=== PATIENT | female | born 1950 | race Hispanic/Latino ===

== ENCOUNTER 2024-04-03 08:48 | Inpatient (IN) | payer OTHER ==
[2024-04-03] MEDS ORDERED: DOCUSATE NA/SENNA CONC 1 TAB PO PRN (13:23)
[2024-04-03] MEDS: INSULIN REGULAR (HUMAN) 100 UNIT/ML SQ SCH (16:09)
[2024-04-03] MEDS: SODIUM CHLORIDE 1 GM TAB PO SCH (16:29)
[2024-04-03] MEDS ORDERED: INSULIN GLARGINE 100 UNIT/ML SQ SCH (16:30)
[2024-04-03] MEDS: ATORVASTATIN 10 MG TAB PO SCH (20:06)
[2024-04-03] MEDS: MELATONIN 3 MG TABLET PO PRN (20:06)
--- NOTE | 2024-04-04 00:47 | HP ---
Date of Admission: 04/03/2024 Chief Complaint: "I fell and hit my head." History Of Present Illness: Ms. Crespo is a 73-year-old right-handed patient with hypertens ion and diabetes mellitus, who was at home walking in her garage in the dark when she tripped and fel l. She landed on her hands, knees, and hit the left head. She did not recall the exact event detail s and likely lost consciousness, but is unsure. She was initially seen, treated with conservative ma nagement, and hospitalized from 02/21/2024 to 02/23/2024. She apparently had another fall somewhere subsequently. However, she became more confused and had a CT scan of her head, which showed a massiv e subacute to chronic subdural hematoma, measuring 1.5 cm, midline shift. She was treated with Keppr a and was taken to emergent surgery with a right craniotomy and evacuation on March 11, 2024. She did have some worsening noted. It was measured again at 1.5 mm with midline shift and compression. Afte r decompression, she had a subdural drain placed and it was removed after CT scan was stable on 03/20 . She did have electrolyte abnormalities with hypomagnesemia and hypokalemia, which were replaced. She had postoperative anemia and it was monitored. She was eventually medically cleared to begin darinel murray for therapy. With therapy, she was found to require maximum assistance for bed mobilization and transfers, and to be able to turn over in bed, and to begin to mobilize. She was initially trans ferred to half-way, but was only able to complete 1 physical and occupational therapy session. She was not doing well and failed to thrive. She did begin to ambulate with a rolling walker, but was "very weak and shaky." She also had significant leaning to the left side when sitting and diffic ulty maintaining balance when standing. She was therefore found to be ambulating much below her norm al level of mobilization and transfers prior to her fall, and would therefore benefit from very aggre ssive therapy to help her return to her prior level of functioning and minimize the risk of rehospita lization. Past Medical History: As noted. Surgical History: Craniotomy, where there was actually 1 staple remaining and that will be removed t jose. Allergies: NO KNOWN DRUG ALLERGIES. X-ray/imaging: On 03/20/2024, CT scan of the head showed the postoperative changes of the right conv exity subdural hematoma. The residual hematoma was 1.2 cm, down from 1.5 cm. Midline shift down to 8 mm. There was no uncal herniation. No contralateral left-sided hydrocephalus. Current Medications: Tylenol 500 mg every 6 hours as needed, Lipitor 10 mg at bedtime, vitamin B12 1 000 mcg daily. She has a mild insulin sliding scale, Synthroid 0.088 mg daily, Prinivil 10 mg daily, melatonin 3 mg at bedtime, Glucophage 500 mg at breakfast, Senokot-S 2 at bedtime, and she receives 2 g of sodium chloride 3 times daily. Family History: Noncontributory. Review of Systems: She does report mild pain in the head at the surgical site, some tingling, and pins and needles sensa tions. Otherwise, she denies any headaches, loss of vision, blurred vision. No fevers, chills. No sick with nausea, vomiting. No generalized myalgia, arthralgia, rash. No psychiatric complaints. Laboratory Studies: Her glucose ranged from 155 to 171. White blood cell count 4.46, hemoglobin 7.1 , hematocrit 22.1, platelets 114. Sodium 134; potassium 3.2; glucose here was 112, which was earlier ; BUN 5; creatinine 0.34. Calcium 6.6, magnesium 1.4. Current Level Of Functioning: Supervision for eating. Moderate assistance for oral hygiene. Depend ent for toileting. Maximum assistance for showering and lower body dressing. Donning and doffing fo otwear, dependent. Rolling from left to right, sitting to lying, all maximum assistance. For transf erring to the side of bed and to the chair and wheelchair and walker, dependent. Physical Examination: Vital Signs: Blood pressure 137/63, pulse 81, respiratory rate 16, temperature 97.2, oxygen saturati on 99%. Weight 150 pounds, height 5 feet 5 inches, BMI 25. General: Ms. Crespo is resting in bed. Her is at bedside. HEENT: She has a long healing scar in the right top of her head with doreen in place. Good hemosta sis is noted there. She is otherwise atraumatic. Sclerae anicteric. Oropharynx moist. Neck: Supple. Chest: Clear. Heart: Regular. Extremities: Show no significant clubbing, cyanosis, or edema. Neurological: She has some mild diffuse weakness of lower extremities. No loss of sensation, left t o right side. Good coordination. Intact upper and lower extremities. Rehabilitation And Medical Assessment And Plan: Ms. Crespo is a 73-year-old patient in inpatient [facility] abilitation unit with impairment category 02, brain dysfunction, traumatic. Impairment group code is 02.22 traumatic, closed injury. Etiologic diagnosis: Right parafalcine subdural hematoma. Comorbi dities are anemia, decreased physical functioning, decreased mobility, hypertension, hypokalemia, hyp omagnesemia with some mild left-sided weakness that is improving. She has a right parafalcine subdur al hematoma, status post craniotomy with resection. Plan: 1.She will have physical, occupational, and speech therapy for 3.5 hours, 5 of 7 days. 2.She will use sequential compression devices for DVT prophylaxis given subdural hematoma. 3.Diabetes mellitus, managed with metformin 500 mg with breakfast on a sliding scale as mild. Low b lood sodium with sodium tablets being replaced. Constipation, with Senokot-S. Melatonin for insomni a. Prinivil for hypertension. Synthroid 0.088 mg for hypothyroidism. Lipitor 10 mg daily for dysli pidemia. Tylenol 500 mg for pain every 4 hours as needed. Comorbidities That Are Impacting Rehabilitation: Given her subdural hematoma, which is traumatic, chichi de la fuente is at risk of bleeding, so DVT prophylaxis will be with SCDs. Otherwise, she has Dr. Deb quinonez her comorbid conditions. Rehab Specific Plan: 1.She will have physical, occupational, and speech therapy for 3.5 hours, 5 of 7 days to improve her ability to transfer from bed to chair to wheelchair to toilet to perform toileting and showering and to mobilize household distances and beyond 250 feet, up and down 10 steps, and to mobilize wheelchai r 250 feet. 2.To perform all cognitive functioning independently, she will have speech. Ms. Crespo has a good understanding of the process of admission to the inpatient rehabilitation [facility] and how she will benefit from physical, occupational, and speech therapy. She will have 24 hours a day, 7 days a week skilled rehabilitation nursing for evaluating her current condition and adminis tering medication, following all vital signs, and addressing issues of pain and reporting to justin n. She will have daily physician evaluation and management for integrating her medical care and reha bilitation. She will have [employer] evaluation and management, discharge planning, home equipm ent, physician followup, and followup for therapy. Also, Dr. Boyd will be following her regularly. Barriers To Discharge: She has of course had the subdural hematoma, and there is a potential for wor sening bleeding. If there are more symptoms such as focal deficits, change in vision, speech, hearin g, she will have a repeat CT scan with no contrast to rule out any worsening bleed. She may require transfer back to [facility] if things worsen. Length Of Stay: About 14 days. Disposition: Home with Home Health and family's care. Prognosis: Good. Rehab Specific Goals: 1.Become independent with upper and lower body dressing, and donning/doffing footwear. 2.Independently perform activities of daily living. 3.Independently ambulate 250 feet with a rolling walker. 4.Independently propel a wheelchair 250 feet. 5.Independently go up and down 10 steps with bilateral handrails. 6.Independently perform cognitive functioning. The above goals were reviewed with Ms. Crespo and she is in agreement. By signing this document, I acknowledge I personally performed a full physical examination on Ms. Bert cortes no later than 24 hours after her admission to the inpatient rehabilitation facility and determine d that she is able to tolerate the above course of treatment at an intensive level for a reasonable p eriod of time. A detailed individualized plan of care for her will be completed by hospital day 4 based on preadmission screen, history and physica l, and therapy evaluations. DARIUS/DARWIN Voice ID: [id number]
[2024-04-04 06:13] LABS: Absolute Eosinophils 0.1 K/uL (0-0.5); Absolute Monocytes 0.4 K/uL (0.1-1.3); Basophils % 1.1 % (0-1.3); Eosinophils % 3.8 % (0-4.4); Lymphocytes % 27.6 % (15.3-44.8); MCH 27.3 pg (27.0-35.0); MCV 85.4 fL (80-100); MPV 7.5 fL (7.6-11.3); Monocytes % 11.9 % (3.3-12.3); Neutrophils % 55.6 % (41.7-73.7); Platelets 131 thou/uL (152-406); RBC Red Blood Cell Count 2.93 M/uL (3.86-4.86); Red Cell Distribution Width 17.6 % (12.1-15.2)
[2024-04-04 06:21] LABS: Albumin 2.3 g/dL (3.4-5.0); Anion Gap 6.8 mEq/L (5.0-15.0); Magnesium 1.5 mg/dL (1.6-2.4); Potassium 3.8 mEq/L (3.5-5.1); Prealbumin 7.3 mg/dL (20-40)
[2024-04-04] MEDS: LEVOTHYROXINE SOD 0.088 MG TAB PO SCH (07:52)
[2024-04-04] MEDS ORDERED: lisinopriL 10 MG TAB PO SCH (08:00)
[2024-04-04] MEDS: METFORMIN HCL 500 MG TAB PO SCH (08:58)
[2024-04-04] MEDS: CYANOCOBALAMIN 1,000 MCG TAB PO SCH (08:58)
[2024-04-04] MEDS: levETIRAcetam 500 MG TAB PO SCH (08:58)
[2024-04-04] MEDS: lisinopriL 10 MG TAB PO SCH (08:59)
[2024-04-04] MEDS: ACETAMINOPHEN 500 MG TAB PO PRN (17:34)
[2024-04-04 18:38] VITALS: BMI 25.0
--- NOTE | 2024-04-04 21:30 | PN ---
Date of Progress Note: 04/04/2024 Time Of Service: 1:30 p.m. Subjective: Ms. Crespo is very happy with her therapy, also at bedside. She is doing all ac tivities with energy and no restrictions. [place] now all removed from the cranial surgical sites an d across the top of her head. No new complaints. Objective: No fevers, chills, nausea, vomiting, myalgias, arthralgias, rash, headache, weight change . Physical Examination: Vital Signs: Blood pressure 130/60, pulse 74, respiratory rate 16, temperature 97, oxygen saturation 96%. General: Ms. Crespo is doing therapy in no significant distress. HEENT: She is normocephalic, atraumatic. Sclerae anicteric. Oropharynx pink and moist. Her surgic al site in the scalp has good hemostasis. Neck: Supple. Chest: Clear. Neurologic: In terms of her neurological findings, no focal deficits despite the stroke. She is ky rt, oriented, and following all commands appropriately. Laboratory Studies: White blood cell count 3.6, hemoglobin 8.0, platelets 131. Sodium 138, potassiu m 3.8, chloride 108, BUN 9, creatinine 0.45, glucose ranged from 128 to 168, calcium 8.0, magnesium 1 .5, albumin 2.3, prealbumin 7.3. X-ray/imaging: No new x-rays or imaging. Medications: Tylenol 500 mg every 4 hours as needed, Lipitor 10 mg at bedtime, vitamin B12 1000 mcg daily, Keppra 500 mg twice daily, Synthroid 0.088 mg daily, Prinivil 10 mg daily, melatonin 3 mg at b edtime, Glucophage 500 mg daily, Senokot-S 2 at bedtime, and sodium chloride tablets 2 g 3 times stephanie y with meals. Progress Made With Physical, Occupational, And Speech Therapy: With therapy today, she am bulated 305 feet, 500 feet, and 120 feet with standby assistance using a rolling walker. She was abl e to go up and down 15 steps with bilateral handrails with standby assistance. Onl-ix-xdtor transfer s done with standby assistance. With occupational therapy, she did require multiple verbal cues for hand placement while transferring. With speech, she recalled 3 of 3 unrelated pictures presented aft er 3 minutes delay. She answered 5/10 questions accurately relating to a passage that was read to he r. She did increase her visual spatial skills scoring an 85%. Ms. Crespo is making excellent progress with physical, occupational, and speech therapy given her sub dural hematoma, which is in the right parafalcine region. Assessment: Ms. Crespo is a 73-year-old patient admitted to the rehabilitation unit with a right par afalcine traumatic subdural hematoma, status post evacuation. She has diabetes mellitus, hypertensio n, decreased mobility, decreased physical functioning, hypomagnesemia, some improved strength in the left side, and electrolyte derangements. She is followed by Dr. Boyd , her primary care physician. Plan: 1.Continue with physical, occupational, speech therapy. 2.Continue all current medications as listed above for comorbid conditions and the electrolyte deran gements being managed by Dr. Boyd. Comorbidities That Are Impacting Rehabilitation: Her comorbidities are stably managed and do not neg atively impact her rehabilitation. DARIUS/DARWIN Voice ID: [id number] Report ID: [id number]
--- NOTE | 2024-04-04 22:39 | HP ---
Date of Admission: 04/03/2024 Chief Complaint: Generalized weakness. History Of Present Illness: This is a 73-year-old very pleasant female patient, who was admitted to rehab floor for physical therapy because of significant generalized weakness. The patient had fallen down at home after she tripped over something in her garage and she was evaluated in the emergency room and then she was sent to another hospital and was kept in hospital from February 20 to February 22 and conservative management was provided at that time. Her condition got worse, so she came back to emergency room on March 11, 2024, and at that time, her CAT scan of the head showed significantly large subacute to chronic subdural hematoma with 1.5 cm midline shift, so the patient was sent to [facility] where she actually had craniotomy surgery done for evacuation of this subdural hematoma and after the surgery, she was sent to [facility] and as of yesterday, she was admitted to rehab floor for inpatient rehab program. The patient was seen this morning and she denies any headache. No nausea, no vomiting. No visual complaints. Allergies: NO KNOWN ALLERGIES. Medications: Current medication list reviewed. As per last office visit, she was taking, Amlodipine 2.5 mg daily, aspirin 81 mg daily, clopidogrel 75 mg daily, levothyroxine 88 mcg daily, lisinopril 10 mg daily, Claritin 10 mg daily,metformin 500 mg takes 2 tablets 2 times a day, rosuvastatin 5 mg daily in the evening, Januvia 100 mg daily with breakfast, vitamin B12 500 mcg daily. Review of Systems: Constitutional: As mentioned above. All other systems reviewed and negative. 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 Past Surgical History: Aortic valve replacement done percutaneously, February 23, 2021; cholecystectomy; hysterectomy. Family History: Father , had pneumonia. Mother , had emphysema. Brother has diabetes. Sister , had a breast cancer. Social History: Negative for smoking, alcohol us Physical Examination: Vital Signs: This morning, temperature 97, pulse 74, respiratory rate 16, blood pressure 114/56, oxygen saturation 96%. Height 5 feet 5 inches, weight 150 pounds. General: Awake, alert, oriented, not in distress. HEENT: The patient's head examination shows evidence of surgical scar from recent craniotomy surgery on the right side with very well-healed surgical scar. No evidence of any gapping, discharge, bleeding, or swelling. Conjunctivae nonerythematous. Sclerae white. Mouth, no thrush or edema noted. Ears/Nose, no mass, lesion, discharge noted. Neck: Supple. No JVD, lymph nodes, bruit, thyromegaly noted. Lungs: Bilateral good equal air entry. Clear to auscultation. No rhonchi. No rales. Heart: Presence of systolic murmur. No gallop. Abdomen: Soft, bowel sounds normal. No guarding, rigidity, tenderness, mass, hepatosplenomegaly, distention, or bruit noted. Extremities: No leg edema. No calf tenderness. Skin: No rash, ulcer, cellulitis. Lymphatics: No lymph node enlargement in neck, supraclavicular, infraclavicular region. Neuro: No focal neurological deficit. Chest: Unremarkable. External Genitalia: Deferred. Rectal: Deferred. Laboratory Data: White count 3.6, hemoglobin 8, platelets 131. Sodium 138, potassium 3.8, chloride 108, bicarb 27, BUN 9, creatinine 0.45, glucose 144, magnesium 1.5, albumin 2.3. Impression: 1. Subdural hematoma, status post craniotomy. 2. Anemia. 3. Thrombocytopenia. 4. Hypomagnesemia. 5. Cirrhosis of liver. 6. Hypertension. 7. Hyperlipidemia. 8. Type 2 diabetes mellitus. 9. Osteoarthritis, multiple sites. 10. Hypothyroidism. 11. Diverticulosis. 12. Renal cyst. 13. Liver mass. Plan: We will go ahead and admit the patient to hospital for further evaluation and management of this problem. The patient is appropriate for inpatient rehab admission for aggressive rehab therapy, where Dr. Wan from rehab will manage her rehab therapy and I will continue to follow her up for medical management. The patient was taking Keppra and Lovenox for DVT prophylaxis while she was at [facility], but we do not see that in our hospital order, so I have asked rehab nurse to communicate with Dr. Wan to make sure if he is okay to restart those medication 500 mg 2 times a day and Lovenox 40 mg subcutaneous injection daily. For her hyperlipidemia, we will continue atorvastatin 10 mg daily per order. Her hypothyroidism will be continued to be managed with levothyroxine 88 mcg daily. She takes lisinopril 10 mg daily for hypertension, we will continue that. Monitor blood pressure and make adjustment on medication as it becomes necessary. For diabetes, she takes metformin and we will continue that per order. Total time spent today that includes review of 2 last emergency room visit records, review of available record from [facility], and performing today's evaluation and management is 80 minutes. KEMI/DARWIN Voice ID: [id number] [id number]
[2024-04-05 05:17] LABS: Specific Gravity 1.023 (1.005-1.030); Sqamous Epithelial <5 /HPF (None Seen); Urine Bacteria None Seen /HPF (<20); Urine Bilirubin NEGATIVE (Negative); Urine Blood Negative (Negative); Urine Clarity Turbid (Clear); Urine Color Yellow (Yellow); Urine Culture Reflex Order REFLEXED; Urine Glucose NEGATIVE (Negative); Urine Ketones NEGATIVE (Negative); Urine Micro Reflex YN NO BILL MICROSCOPIC; Urine Mucus Slight /HPF (None Seen); Urine Nitrite NEGATIVE (Negative); Urine Protein TRACE (Negative); Urine RBC None Seen /HPF (None Seen); Urine Urobilinogen 2+ (Normal); Urine pH 6.5 (5.0-7.0)
[2024-04-05] MEDS: FERROUS SULFATE 325 MG TAB PO SCH (09:45)
[2024-04-05] MEDS: FE SULF/FA/VIT B COMP & C TAB PO SCH (09:45)
[2024-04-05] MEDS: MAGNESIUM OXIDE 400 MG TAB PO SCH (09:46)
[2024-04-05] MEDS: ENSURE HIGH PROTEIN 237 ML CAN PO SCH (12:32)
--- NOTE | 2024-04-05 13:18 | P.RH.PN ---
Estimated Length of Stay: 8 Expected Discharge Date: 04/10/24 Discharge Disposition Plan: Home Family Support: Yes Section Housekeeper Goal: Mobility, Transfers, Self Care Vital Signs: Last Vital Signs Temp 96.8 F 04/05/24 08:00 Pulse 73 04/05/24 08:00 Resp 16 04/05/24 08:00 BP 125/61 04/05/24 08:00 Pulse Ox 98 04/05/24 08:00 Laboratory: Laboratory Last Values WBC 3.60 thou/uL (4.3-10.9) L 04/04/24 05:46 RBC 2.93 M/uL (3.86-4.86) L 04/04/24 05:46 Hgb 8.0 g/dL (12.0-15.0) L 04/04/24 05:46 Hct 25.0 % (36.0-45.0) L 04/04/24 05:46 MCV 85.4 fL (80-100) 04/04/24 05:46 MCH 27.3 pg (27.0-35.0) 04/04/24 05:46 MCHC 32.0 g/dL (32.0-36.0) 04/04/24 05:46 RDW 17.6 % (12.1-15.2) H 04/04/24 05:46 Plt Count 131 thou/uL (152-406) L 04/04/24 05:46 MPV 7.5 fL (7.6-11.3) L 04/04/24 05:46 Neutrophils % 55.6 % (41.7-73.7) 04/04/24 05:46 Lymphocytes % 27.6 % (15.3-44.8) 04/04/24 05:46 Monocytes % 11.9 % (3.3-12.3) 04/04/24 05:46 Eosinophils % 3.8 % (0-4.4) 04/04/24 05:46 Basophils % 1.1 % (0-1.3) 04/04/24 05:46 Absolute Neutrophils 2.0 K/uL (1.8-8.0) 04/04/24 05:46 Absolute Lymphocytes 1.0 K/uL (0.7-4.9) 04/04/24 05:46 Absolute Monocytes 0.4 K/uL (0.1-1.3) 04/04/24 05:46 Absolute Eosinophils 0.1 K/uL (0-0.5) 04/04/24 05:46 Absolute Basophils 0.0 K/uL (0-0.5) 04/04/24 05:46 Sodium 138 mEq/L (136-145) 04/04/24 05:46 Potassium 3.8 mEq/L (3.5-5.1) 04/04/24 05:46 Chloride 108 mEq/L (98-107) H 04/04/24 05:46 Carbon Dioxide 27 mEq/L (21-32) 04/04/24 05:46 Anion Gap 6.8 mEq/L (5.0-15.0) 04/04/24 05:46 BUN 9 mg/dL (7-18) 04/04/24 05:46 Creatinine 0.45 mg/dL (0.55-1.02) L 04/04/24 05:46 Est GFR (CKD-EPI) 102 ml/min (=/>90) 04/04/24 05:46 Glucose 144 mg/dL (74-106) H 04/04/24 05:46 POC Glucose 169 mg/dL (65-120) H 04/05/24 11:39 Calcium 8.0 mg/dL (8.5-10.1) L 04/04/24 05:46 Magnesium 1.5 mg/dL (1.6-2.4) L 04/04/24 05:46 Albumin 2.3 g/dL (3.4-5.0) L 04/04/24 05:46 Prealbumin 7.3 mg/dL (20-40) L 04/04/24 05:46 Urine Color Yellow (Yellow) 04/04/24 20:47 Urine Clarity Turbid (Clear) H 04/04/24 20:47 Urine pH 6.5 (5.0-7.0) 04/04/24 20:47 Ur Specific [place] 1.023 (1.005-1.030) 04/04/24 20:47 Glucose (UA)(Auto) Negative (Negative) 04/04/24 20:47 Urine Ketones Negative (Negative) 04/04/24 20:47 Urine Blood Negative (Negative) 04/04/24 20:47 Urine Nitrite Negative (Negative) 04/04/24 20:47 Urine Bilirubin Negative (Negative) 04/04/24 20:47 Urine Urobilinogen 2+ (Normal) H 04/04/24 20:47 Ur Leukocyte Esterase 500 Maurice/uL (Negative) H 04/04/24 20:47 Urine RBC None seen /HPF (None Seen) 04/04/24 20:47 Urine WBC 10-20 /HPF (<5) H 04/04/24 20:47 Ur Squamous Epith Cells <5 /HPF (None Seen) 04/04/24 20:47 U Non-Squamous Epi Cells <5 /HPF (None Seen) 04/04/24 20:47 Urine Bacteria None seen /HPF (<20) 04/04/24 20:47 Urine Mucus Slight /HPF (None Seen) 04/04/24 20:47 Urine Culture Reflexed Reflexed 04/04/24 20:47 Urine Total Protein Trace (Negative) H 04/04/24 20:47 Weight: 150 lb 6.4 oz Wound Present: No Closed Surgical Incision Present: Yes Physician Update: Labs reviewed and are stable. Right scalp surgical site with good hemostasis. Difficulty with balance and safety awareness. She is doing well with all therapy. SLUMS 15, poor attention, working memory, poor insite into hemorrhage. SBA 500', 15 steps. Independent with self care. Comment: healing surgical incision to right side of head, dried scabs in place, no redness or edema. [address] to top of surgical site. Summary: Patient's care plan and snf goals have been reviewed and revised as necessary. Please see the Rehabilitation Signature page for all necessary signatures.
[2024-04-06] MEDS ORDERED: FE SULF/FA/VIT B COMP & C TAB PO SCH (09:00)
--- NOTE | 2024-04-06 11:03 | PN ---
Date of Progress Note: 04/06/2024 Subjective: The patient was seen this morning for followup. She was on the rehab floor. Her husban d was with her at bedside. She was noted to be ambulating very well using her walker. Denies any co mplaints. No headache, nausea, vomiting. No chest pain, shortness of breath. Has a good appetite. Objective: Vital Signs: Reviewed. HEENT: Unremarkable. Lungs: Clear to auscultation. Heart: Sounds normal. Abdomen: Soft. Bowel sounds normal. No guarding, rigidity, tenderness, distention. Extremities: No leg edema. Impression: 1.Subdural hematoma, status post craniotomy. 2.Anemia. 3.Thrombocytopenia. 4.Cirrhosis of liver. 5.Hypertension. 6.Hyperlipidemia. 7.Type 2 diabetes mellitus. Plan: We will go ahead and continue current medical management for her chronic medical problems. Co frankie physical therapy under guidance of Dr. Wan. She is scheduled to go home from rehab floor on 04/09/2024, and I have instructed her to come see me for followup a week after she gets discharge d. Details were discussed with the patient and patient's who was with her today. She was instructed that upon discharge from the hospital, I would encourage her to continue to use her wa lker all the time. KEMI/MODL Voice ID: [id number] Report ID: [id number]
[2024-04-07 06:25] LABS: Anion Gap 6.8 mEq/L (5.0-15.0); Potassium 3.8 mEq/L (3.5-5.1)
--- NOTE | 2024-04-07 15:41 | PN ---
Date of Progress Note: 04/07/2024 Subjective: The patient was seen this morning for followup. She was lying in bed, not in distress. Denies any new complaints this morning. Objective: Vital Signs: Reviewed. HEENT: Unremarkable. Lungs: Clear to auscultation. Heart: Sounds normal. Abdomen: Soft. Bowel sounds normal. No guarding, rigidity, tenderness, distention. Extremities: No leg edema. Laboratory Data: Sodium 137, potassium 3.8, chloride 107, bicarb 27, BUN 9, creatinine 0.41, glucose 132. Impression: 1.Subdural hematoma, status post craniotomy. 2.Hypertension. 3.Cirrhosis of liver. 4.Hyperlipidemia. 5.Type 2 diabetes mellitus. 6.Anemia. Plan: We will go ahead and continue iron supplementation for anemia problem. Continue current diabe rolo management and current antihypertensive medication. The patient is doing very well with physical therapy and she is scheduled to go home day after tomorrow. I will see her tomorrow morning for fol lowup. EKMI/MODL Voice ID: [id number] Report ID: [id number]
--- NOTE | 2024-04-08 20:43 | CON ---
Date of Consultation: 04/08/2024 Reason For Consultation: Dual antiplatelet therapy management after subdural hematoma. History Of Present Illness: A 73-year-old female, was admitted to rehab after she had a fall where s he sustained an intracranial bleed, required surgery, and she was taken off all anticoagulants. Past Medical History: Diabetes, hypertension, dyslipidemia, aortic valve stenosis, status post repla cement in 2020. Medications: Refer reconciliation sheet for detailed list. Allergies: NO KNOWN DRUG ALLERGIES. Family History: No premature coronary artery disease or cancer. Social History: She does not smoke or drink. Does not use any drugs. Review of Systems: All systems reviewed, they are negative except as mentioned in HPI. Physical Examination: Vital Signs: Reviewed. Head and Neck: Pupils are equal, reactive to light. Intact eye movements. No JVD. No cervical lym phadenopathy. Neck: Supple. Thyroid is not enlarged. Lungs: Clear to auscultation bilaterally. No rhonchi, wheezing, or crackles. No accessory muscle u se. Heart: Regular rate and rhythm. No extra sounds. Abdomen: Soft, nontender. Bowel sounds positive. No organomegaly. No masses or hernia. No rigidi ty or rebound. Extremities: No edema, clubbing, cyanosis. Intact pulses. Skin: No rash. No nodule. Neuro: Alert, awake, oriented x3. No acute focal deficits appreciated. Lymph Nodes: No cervical or axillary lymphadenopathy. Investigations: Labs were reviewed. Assessment And Recommendation: 1.Subdural hematoma and she was on Plavix and aspirin after the valve replacement. Both can be disc ontinued completely until her neurological status is stable. She could potentially resume the baby a spirin alone down the road once her intracranial hemorrhage is stable and she can stay off it as long as this condition is not stable. I will discuss this further with Dr. Boyd. 2.Aortic valve stenosis, status post aortic valve replacement, doing clinically well. We will plan for obtaining echo on her as an outpatient. 3.Hypertension. Blood pressure is controlled. Thank you for the consult. /DARWIN Voice ID: [id number] Report ID: [id number]
[2024-04-08 21:25] VITALS: TEMP 97.8
--- NOTE | 2024-04-08 23:37 | PN ---
Date of Progress Note: 04/08/2024 Time Of Service: 1:25 p.m. Subjective: Ms. Crespo is doing excellent. She is taking a nap in between therapy sessions. She armstrong s no new complaints and very happy with her recovery after her traumatic right parafalcine subdural h ematoma. Objective: No fevers, chills, nausea, vomiting, myalgias, arthralgias, rash, or any other complaints . Physical Examination: Vital Signs: Blood pressure 133/61, pulse 85, respiratory rate 16, temperature 97.4, oxygen saturati on 98%. General: Ms. Crespo is resting comfortably in bed. She denies any pain at the surgical site on the top of her head and no other complaints. She has no nausea, vomiting, myalgias, arthralgias, rash, h eadache, weight change. Neurologic: She is intact in terms of upper and lower body and facial sensation and coordination. Laboratory Studies: Today, blood sugars ranged from 114 to 163. X-ray/imaging: No new x-rays or imaging. Medications: Her medications have been reviewed and are unchanged. Progress Made With Physical, Occupational, And Speech Therapy: Today with physical therapy, she ambu lated 175 feet, another 500 feet independently. She is able to go up and down 15 steps with bilatera l handrails independently. Ggvdqy-rp-awd transfers done independently. Aoj-lg-wzwdr transfers done independently. With occupational therapy, independent with bed mobility. Transfer in the shower, e was independent and ambulated to and from shower independently. Toileting, bathing, upper and lowe r body dressing, footwear changes, all done independently. With her speech, she improved her BIMS sc ore from 13 to 15 and her SLUMS score from 15 to 21. She still has some difficulty with working shani ry, attention, organizational thinking. As noted though, she did improve. Ms. Crespo has made excellent progress with physical, occupational, and speech therapy, and is ready for discharge in the morning. Assessment: Ms. Crespo is a 73-year-old patient, admitted to the rehabilitation unit with a traumati c right parafalcine subdural hematoma. She has recovered excellently from that. She has no pain in the surgical site on the top, where she had evacuation done. She has diabetes mellitus, hypertension . She has decreased mobility, decreased physical functioning, which is working very well. She has h ypomagnesemia, again which is improved. She is followed by primary care physician, Dr. Boyd, who is managing her comorbid conditions. Plan: 1.She will continue with physical, occupational, and speech therapy until discharge tomorrow. 2.She will continue with all comorbid condition medications which are managed by Dr. Boyd. Comorbidities That Are Impacting Rehabilitation: Her comorbidities are all stably managed and do not negatively impact her rehabilitation. DARIUS/DARWIN Voice ID: [id number] Report ID: [id number]
[2024-04-09 07:35] VITALS: BP 129/60
--- NOTE | 2024-04-09 22:55 | PN ---
Date of Progress Note: 04/08/2024 Subjective: The patient was seen this morning for followup. No new complaints or problems reported by the patient. She was lying in bed, not in any distress. Vital Signs: Reviewed. HEENT: Unremarkable. Lungs: Clear to auscultation. Heart: Sounds normal. Abdomen: Soft. Bowel sounds normal. No guarding, rigidity, tenderness, distention. Extremities: No leg edema. Impression: 1.Subdural hematoma, status post craniotomy. 2.Type 2 diabetes mellitus. 3.Anemia. 4.Cirrhosis of liver. 5.Hypertension. 6.Hyperlipidemia. Plan: We will go ahead and continue current medication. Cardiology consultation is appreciated, and Dr. Olson has recommended that the patient can stay off her antiplatelet therapy, which is aspirin and Plavix as long as it needs to be and at appropriate time we can restart her antiplatelet therapy with aspirin alone and no need to go back on clopidogrel. We will definitely keep that in mind right now and continue current medications. I will see her tomorrow for followup. Continue pediatric physical therapist apy under guidance of Dr. Wan and she is scheduled to go home tomorrow. KEIM/MODL Voice ID: [id number] Report ID: [id number]
--- NOTE | 2024-04-12 23:38 | DS ---
Date of Discharge: 04/09/2024 Disposition: Discharged to go home. Physical Examination: HEENT: Unremarkable. Lungs: Clear to auscultation. Heart: Sounds normal. Abdomen: Soft. Bowel sounds normal. No guarding, rigidity, tenderness, distention. Extremities: No leg edema. Discharge Medications/instructions: 1.Iron 65 mg take 1 tablet by mouth daily and this is moel-bug-hdlzdhn medication. 2.Levothyroxine 88 mcg take 1 tablet by mouth daily. 3.Lisinopril 10 mg take 1 tablet by mouth daily. 4.Change metformin 500 mg take 1 tablet by mouth 2 times a day with food. 5.Rosuvastatin 5 mg take 1 tablet by mouth daily at bedtime. 6.Vitamin B12 500 mcg take 1 tablet by mouth daily. 7.Keppra that is levetiracetam 500 mg take 1 tablet by mouth 2 times a day. 8.Januvia 100 mg take 1 tablet by mouth daily. Do not take following medications: 1.Aspirin. 2.Clopidogrel. Follow up at my office next week and at that time, we will allow her to restart aspirin, but clopidog rel will be discontinued permanently. Laboratory Data: On 04/04/2024, white count 3.6, hemoglobin 8, platelets 131. Last chemistry from 0 04/07/2024, sodium 137, potassium 3.8, chloride 107, bicarb 27, BUN 9, creatinine 0.41, glucose 132. Upon admission, sodium 138, potassium 3.8, chloride 108, bicarb 27, BUN 9, creatinine 0.45, glucose 1 44, serum albumin 2.3. Hospital Course: This is a 73-year-old pleasant female patient, who was admitted to inpatient rehab with generalized weakness. Please see dictated H and P for more information. The patient had subdur al hematoma, for which she had surgery done with craniotomy at [facility]. After this surgery, t he patient was sent to residential facility from where she was brought to our inpatient rehab. Óscar Wan was consulted and he managed the patient's rehab therapy. Medical problems during this r ab hospital stay remained stable. We continued her diabetes management with oral medications and c ontinued lisinopril for her hypertension. The patient participated well with her therapy and overall her condition improved significantly where we were able to discharge her to go home today in stable condition with above-mentioned medications and instructions. I did consult Dr. Olson, the patient's adult neuropsychologist, regarding guidance for anti-platelet therapy management. The patient had TAVR procedu re done on February 23, 2021, and she has been on aspirin and clopidogrel since that time and Dr. Olson evaluated her and provided his recommendation that we can keep those medication off as long as we nee d to and at appropriate time, the patient can be restarted back on aspirin alone and no need to go ba on clopidogrel, so my plan is to possibly restart her aspirin 81 mg daily as of next week after chichi de la fuente comes back to see me at office for followup visit and all these details were discussed with her as well. Final Diagnoses: 1.Subdural hematoma, status post craniotomy. 2.Anemia. 3.Thrombocytopenia. 4.Hypomagnesemia. 5.Cirrhosis of liver. 6.Hypertension. 7.Hyperlipidemia. 8.Type 2 diabetes mellitus. 9.Osteoarthritis, multiple sites. 10.Hypothyroidism. 11.Diverticulosis. 12.Renal cyst. 13.Liver mass. Total time spent 45 minutes. KEMI/MODL Voice ID: [id number] Report ID: [id number]
== END 2024-04-09 09:40 | disposition home or self-care (01) | DRG 950 ==
LOC: 5TH 08:48
PROVIDERS: ADMIT Internal Medicine; ATTEND Internal Medicine
DX: S06.5XAD Traumatic subdural hemorrhage with loss of consciousness status unknown, subsequent encounter (principal); I10 Essential (primary) hypertension; E11.9 Type 2 diabetes mellitus without complications; D64.9 Anemia, unspecified; E87.6 Hypokalemia; E83.42 Hypomagnesemia; K57.90 Diverticulosis of intestine, part unspecified, without perforation or abscess without bleeding; M15.9 Polyosteoarthritis, unspecified; D69.6 Thrombocytopenia, unspecified; E03.9 Hypothyroidism, unspecified; N28.1 Cyst of kidney, acquired; R16.0 Hepatomegaly, not elsewhere classified; K74.60 Unspecified cirrhosis of liver; I35.0 Nonrheumatic aortic (valve) stenosis; E78.5 Hyperlipidemia, unspecified
CPT/HCPCS: 36415; 80048; 81001; 82040; 82947; 83735; 84134; 85025; 87077; 87086; 87088; 87186; 92523; 97110; 97116; 97129; 97163; 97165; 97530; 97542